=== PATIENT | female | born 1990 | race Two or more races ===

== ENCOUNTER 2018-07-26 10:36 | Emergency (ER) | payer OTHER ==
[2018-07-26 10:43] VITALS: BP 119/66; PULSE 120; TEMP 100.2; BMI 30.2
[2018-07-26] MEDS ORDERED: ACETAMINOPHEN 500 MG TABLET (FP) PO ONE (11:30)
--- NOTE | 2018-07-26 11:30 | PDOC ---
History of Present Illness - General Chief Complaint: Cold Symptoms Stated Complaint: FLU SYMPTOMS Time Seen by Provider: 07/26/18 11:06 History Source: Patient, Anode Worker Used (#[id number]) - History of Present Illness Initial Comments: 07/26/18 11:30 Patient 32 weeks present with complaint of 2 day history of cough, runny nose, fever, sore throat and headache. Patient denies vomiting, diarrhea or any other symptoms. Patient denies vaginal bleeding or abdominal pain.Patient took Tylenol 500 mg 2 hours ago for fever. 07/26/18 11:34 Past History - Past Medical History Allergies/Adverse Reactions: Allergies Allergy/AdvReac Type Severity Reaction Status Date / Time No Known Allergies Allergy Verified 07/26/18 10:43 Home Medications: Ambulatory Orders Docusate Sodium 100 mg PO BID 15 Days #30 capsule 03/22/18 Hydrocortisone 2.5% Topical Cr [Anusol 2.5% Hc Cream -] 1 applic RC DAILY #1 tube 03/22/18 105/Iron/Folic AC/Dha [Prena1 True Combo Pack] 1 each PO DAILY Albuterol Sulfate Inhaler - [Ventolin Hfa Inhaler -] 2 inh PO Q6H PRN #1 inh Benzonatate [Tessalon Pearls -] 100 mg PO TID PRN #12 capsule 07/26/18 Oseltamivir Phosphate [Tamiflu] 75 mg PO BID 5 Days #10 capsule 07/26/18 COPD: No CHF: No DVT: No Dementia: No - Immunization History Immunization Up to Date: Yes - Suicide/Smoking/Psychosocial Hx Smoking History: Never smoked Have you smoked in the past 12 months: No Information on smoking cessation initiated: No Hx Alcohol Use: No Drug/Substance Use Hx: No Substance Use Type: None Review of Systems - Review of Systems Able to Perform ROS?: Yes Is the patient limited Tajik proficient: No Constitutional: Yes: Fever, Malaise. No: Weakness HEENTM: Yes: Symptoms Reported, See HPI, Nose Congestion, Throat Pain. No: Eye Pain, Blurred Vision, Tearing, Recent change in vision, Double Vision, Cataracts , Ear Pain, Ocular Prothesis, Ear Discharge, Nose Pain, Tinnitus, Nose Bleeding , Hearing Loss, Throat Swelling, Mouth Pain, Dental Problems, Difficulty Swallowing, Mouth Swelling, Other Respiratory: Yes: Symptoms reported, See HPI, Cough. No: Orthopnea, Shortness of Breath, SOB with Exertion, SOB at Rest, Stridor, Wheezing, Productive cough, Hemoptysis, Other Cardiac (ROS): No: Symptoms Reported, See HPI, Chest Pain, Edema, Irregular Heart Rate, Lightheadedness, Palpitations, Syncope, Chest Tightness, Other ABD/GI: No: Constipated, Diarrhea, Nausea, Vomiting, Abdominal cramping All Other Systems: Reviewed and Negative *Physical Exam - Vital Signs Last Vital Signs Temp Pulse Resp BP Pulse Ox 100.2 F H 120 H 16 119/66 100 07/26/18 10:40 07/26/18 10:40 07/26/18 10:40 07/26/18 10:40 07/26/18 10:40 - Physical Exam Comments: 07/26/18 11:32 GENERAL: Well developed, well nourished. Awake and alert. No acute distress. HEENT: Normocephalic, atraumatic. PERRLA, EOMI. No conjunctival pallor. Sclera are non-icteric. Moist mucous membranes. Oropharynx is clear. NECK: Supple. Full ROM. CARDIOVASCULAR: Regular rate and rhythm. No murmurs, rubs, or gallops. Distal pulses are 2+ and symmetric. PULMONARY: No evidence of respiratory distress. Lungs clear to auscultation bilaterally. No wheezing, rales or rhonchi. ABDOMINAL: 32 weeks gravid abdomen.Soft. Non-tender. No rebound or guarding. No organomegaly. Normoactive bowel sounds. MUSCULOSKELETAL Normal range of motion at all joints. SKIN: Warm and dry. Normal capillary refill. No rashes. No jaundice. NEUROLOGICAL: Alert, awake, appropriate. Gait is normal without ataxia. PSYCHIATRIC: Cooperative. Good eye contact. Appropriate mood General Appearance: Yes: Nourished, Appropriately Dressed. No: Apparent Distress Moderate Sedation - Procedure Monitoring Vital Signs: Procedure Monitoring Vital Signs Temperature 100.2 F H 07/26/18 10:40 Pulse Rate 120 H 07/26/18 10:40 Respiratory Rate 16 07/26/18 10:40 Blood Pressure 119/66 07/26/18 10:40 O2 Sat by Pulse Oximetry (%) 100 07/26/18 10:40 Medical Decision Making - Medical Decision Making 07/26/18 11:33 Patient 32 weeks present with complaint of 2 day history of runny nose, cough, fever, sore throat and headache. Patient took Tylenol 500 mg 2 hours ago for fever. Clinical exam unremarkable except fever of 100.2 Fahrenheit. Rapid strep and rapid flu tests ordered. Tylenol 500 mg by mouth given for fever. Treat based on lab results. 07/26/18 12:00 Rapid strep and flu negative. Patient symptoms likely viral syndrome with URI. Patient is to be treated with Tamiflu given low sensitivity of rapid flu tests. Patient is stable for discharge with outpatient treatment and PCP follow-up. *DC/Admit/Observation/Transfer Diagnosis at time of Disposition: Viral syndrome, Cough URI (upper respiratory infection) Qualifiers: URI type: unspecified viral URI Qualified Code(s): J06.9 - Acute upper respiratory infection, unspecified - Discharge Dispostion Disposition: HOME Condition at time of disposition: Stable Decision to Admit order: No - Prescriptions Prescriptions: Albuterol Sulfate Inhaler - [Ventolin Hfa Inhaler -] 2 inh PO Q6H PRN #1 inh PRN Reason: Cough Benzonatate [Tessalon Pearls -] 100 mg PO TID PRN #12 capsule PRN Reason: Cough Oseltamivir Phosphate [Tamiflu] 75 mg PO BID 5 Days #10 capsule - Referrals - Patient Instructions Printed Discharge Instructions: DI for Viral Upper Respiratory Infection -- Adult Additional Instructions: Take medication as prescribed. Increase fluid intake. Follow-up with PCP. Print Language: BAHAMIAN - Post Discharge Activity
[2018-07-26] MEDS ORDERED: ACETAMINOPHEN 500 MG TABLET (FP) ONE (11:35)
== END 2018-07-26 12:08 | disposition home or self-care (01) ==
LOC: JERFT 10:36
DX: J06.9 Acute upper respiratory infection, unspecified (principal); B97.89 Other viral agents as the cause of diseases classified elsewhere
CPT/HCPCS: 87070; 87804; 87880; 99281-25

== ENCOUNTER 2018-09-07 22:15 | Emergency (ER) | payer OTHER ==
[2018-09-07 22:17] VITALS: BP 121/67; PULSE 82; TEMP 97.6; BMI 30.9
--- NOTE | 2018-09-07 22:52 | PDOC ---
History of Present Illness - General Chief Complaint: Nausea/Vomiting Stated Complaint: [id number] Time Seen by Provider: 09/07/18 22:29 History Source: Patient Exam Limitations: No Limitations Past History - Past Medical History Allergies/Adverse Reactions: Allergies Allergy/AdvReac Type Severity Reaction Status Date / Time No Known Allergies Allergy Verified 07/30/18 22:17 Home Medications: Ambulatory Orders 105/Iron/Folic AC/Dha [Prena1 True Combo Pack] 1 each PO DAILY COPD: No CHF: No DVT: No Dementia: No - Immunization History Immunization Up to Date: Yes - Suicide/Smoking/Psychosocial Hx Smoking History: Never smoked Have you smoked in the past 12 months: No Information on smoking cessation initiated: No Hx Alcohol Use: No Drug/Substance Use Hx: No Substance Use Type: None *Physical Exam - Vital Signs Last Vital Signs Temp Pulse Resp BP Pulse Ox 97.6 F 82 20 121/67 98 09/07/18 22:16 09/07/18 22:16 09/07/18 22:16 09/07/18 22:16 09/07/18 22:16 - Physical Exam General Appearance: No: Apparent Distress Respiratory/Chest: positive: Lungs Clear, Normal Breath Sounds. negative: Respiratory Distress Cardiovascular: positive: Regular Rhythm, Regular Rate, S1, S2. negative: Murmur Gastrointestinal/Abdominal: positive: Other (gravid uterus) Integumentary: positive: Normal Color Neurologic: positive: Alert, Normal Mood/Affect Moderate Sedation - Procedure Monitoring Vital Signs: Procedure Monitoring Vital Signs Temperature 97.6 F 09/07/18 22:16 Pulse Rate 82 09/07/18 22:16 Respiratory Rate 20 09/07/18 22:16 Blood Pressure 121/67 09/07/18 22:16 O2 Sat by Pulse Oximetry (%) 98 09/07/18 22:16 Medical Decision Making - Medical Decision Making 28 y/o F currently 38 weeks , was sent from L&D as patient having NBNB emesis and watery diarrhea x 2 days. Patient's has similar sxs; sxs started after eating cheese from [place]. Patient has had no vomiting today and was able to eat food. On L&D floor, patient had heart rate monitoring done which was normal; patient got 1 L of LR while there. Denies fever, sob, cp, abd pain, vaginal bleeding Patient appears well Was able to tolerate PO here as well Likely viral gastroenteritis Stable for dc 09/07/18 22:52 *DC/Admit/Observation/Transfer Diagnosis at time of Disposition: Gastroenteritis - Discharge Dispostion Disposition: HOME Condition at time of disposition: Stable Decision to Admit order: No - Referrals Referrals: Shwetha Gomes [Primary Care Provider] - 2 Days - Patient Instructions Printed Discharge Instructions: DI for Viral Gastroenteritis -- Adult Additional Instructions: Thank you for choosing [facility]. It was a pleasure taking care of you. Stay hydrated - drink at least 2 L of water daily Eat light food - recommend bananas, rice, applesauce, plain toast, plain yogurt until feeling better Follow-up with PCP in 2-3 days Return to the Emergency Department if your symptoms worsen or persist or have other concerning symptoms. - Post Discharge Activity
== END 2018-09-07 23:57 | disposition home or self-care (01) ==
LOC: JER 22:15
DX: O26.893 Other specified pregnancy related conditions, third trimester (principal); O99.613 Diseases of the digestive system complicating pregnancy, third trimester; K92.89 Other specified diseases of the digestive system; K52.9 Noninfective gastroenteritis and colitis, unspecified; Z3A.38 38 weeks gestation of pregnancy
CPT/HCPCS: 99282-25

== ENCOUNTER 2018-09-18 08:00 | Inpatient (IN) | payer OTHER ==
[2018-09-20] MEDS ORDERED: ELECTROLYTE-148 SOLN 1,000 ML IV SCH (07:00)
[2018-09-20 07:48] VITALS: BMI 31.5
[2018-09-20] MEDS ORDERED: CITRIC ACID/SODIUM CITRATE 30 ML UNIT-DOSE CUP PO ONE (07:54)
[2018-09-20] MEDS ORDERED: ELECTROLYTE-148 SOLN 500 ML IV ONE (07:54)
--- NOTE | 2018-09-20 08:13 | HP ---
Past Medical History - Primary Care Physician PCP:: Anh Shahid - Admission Chief Complaint: 28 yrs , 39.4 weeks previous c/section type unknown requests for repeat c/section History of Present Illness: pnc at [address] [place] [address] 01/30/18 Panel: O Pos, , Hbsag neg, Rpr nr, Rubella iimune, Varicella iimune, , Lead neg, gc/ct neg, [id number] , Sickle neg , Hiv neg, CF screen neg 06/20/18 1 Hr Gtt 106, , Rpr nr, , Quantiferon neg, 08/20/18 GBS POS, Gc/Ct neg, HIV neg, sono done by [facility] for growth reviewed NT screen & AFP screen neg 08/30/18 last sono sliup, vx, , kel 18.5, , bpp 8/, m efw 6'2", Post Placenta History Source: Patient, Medical Record Limitations to Obtaining History: No Limitations - Past Medical History 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 Weeks Gestation by Dates: 40 ...EDC by Dates: 09/20/18 ...EDC by Sono: 09/23/18 (39.4 weeks by sono) Infectious Disease: No: AIDS, HIV, STD's, Tuberculosis Psych: No: Addictions, Anxiety, Bipolar, Depression, Panic, Psychosis, Schizophrenia, Other Endocrine: No: Diabetes Mellitus, Hyperthyroidism, Hypothyroidism - Past Surgical History Past Surgical History: Yes: (c/section in 2008) Hx Myomectomy: No Hx Transabdominal Cerclage: No - Smoking History Smoking history: Never smoked Have you smoked in the past 12 months: No - Alcohol/Substance Use Hx Alcohol Use: No History of Substance Use: reports: None Home Medications - Allergies Allergies/Adverse Reactions: Allergies Allergy/AdvReac Type Severity Reaction Status Date / Time No Known Allergies Allergy Verified 07/30/18 22:17 - Home Medications Home Medications: Ambulatory Orders 105/Iron/Folic AC/Dha [Prena1 True Combo Pack] 1 each PO DAILY Physical Exam - Maternity Vital Signs: Vital Signs Temperature 99.1 F 09/20/18 07:36 Pulse Rate 98 H 09/20/18 07:36 Respiratory Rate 09/20/18 07:36 Blood Pressure 137/83 09/20/18 07:36 O2 Sat by Pulse Oximetry (%) Selected Entries 09/20/18 07:36 Weight 156 lb Constitutional: Yes: Well Nourished Eyes: Yes: WNL HENT: Yes: WNL, Normocephalic Neck: Yes: WNL Cardiovascular: Yes: WNL, Regular Rate and Rhythm Lungs: Clear to auscultation Breast(s): Yes: WNL - Abdominal Exam/OB Fundal Height: 39 Number of Fetuses: Single Presentation: Breech Contractions: No Monitor Mode: External Heart Rate (range): 140 Heart Rate Location: Midline Category: I Accelerations: Uniform Decelerations: None - Vaginal Exam/OB Vaginal Bleediing: No Speculum Exam: No Dilatation (cm): close Effacement (%): unefface Presentation: Vertex/Position Station: -3 - Physical Exam Musculoskeletal: Yes: WNL Extremities: Yes: WNL. No: Calf Tenderness Edema: LLE: 1+, RLE: 1+ Integumentary: Yes: WNL, Incision (pfannensteil scar) Deep Tendon Reflex Grade: Normal +2 ...Motor Strength: WNL Psychiatric: Yes: WNL, Alert, Oriented - Labs Lab Results: Laboratory Tests 09/19/18 09/19/18 09/19/18 08:38 08:38 08:38 WBC Hgb Hct Plt Count PT with INR 10.80 INR 0.92 Sodium 137 Potassium 4.7 Chloride 103 Carbon Dioxide 26 BUN 10 Creatinine 0.6 Random Glucose 113 H Calcium 9.6 Total Bilirubin 0.6 AST 26 ALT 27 Urine Protein 1+ H Ur Leukocyte Esterase Trace Urine WBC (Auto) 7 Urine RBC (Auto) None Ur Epithelial Cells Many RPR Titer 09/19/18 09/19/18 08:38 08:38 WBC 7.6 Hgb 12.4 Hct 36.8 Plt Count 168 D PT with INR INR Sodium Potassium Chloride Carbon Dioxide BUN Creatinine Random Glucose Calcium Total Bilirubin AST ALT Urine Protein Ur Leukocyte Esterase Urine WBC (Auto) Urine RBC (Auto) Ur Epithelial Cells RPR Titer Nonreactive Hemorrhage Risk Assessment - Risk Factors Medium Risk Factors: Yes: Prior , uterine surgery,or multiple laparotomies Risk Score: 1 Risk Level: Medium Risk Problem List - Problems (1) with 39 completed weeks gestation Code(s): Z3A.39 - 39 WEEKS GESTATION OF (2) Previous section Code(s): Z98.891 - HISTORY OF UTERINE SCAR FROM PREVIOUS SURGERY (3) Raulito breech presentation Code(s): O32.1XX0 - MATERNAL CARE FOR BREECH PRESENTATION, UNSP Qualifiers: Fetus number: single or unspecified fetus Qualified Code(s): O32.1XX0 - Maternal care for breech presentation, not applicable or unspecified Assessment/Plan 28 yrs , Previous c/section type unknown, breech presentation for repeat c/section Plan Repeat LFTC/section
[2018-09-20] MEDS ORDERED: morphine SULFATE/Preservative Free 0.5 MG/ML (1cc Syringe) ONE (08:41)
[2018-09-20] MEDS ORDERED: ePHEDrine SULFATE 50 MG/1 ML AMPULE ONE (08:53)
[2018-09-20 09:46] LABS: ARTERIAL BLD GAS O2 SATURATION 8.3 % (90-98.9); ARTERIAL BLOOD GAS BASE EXCESS -6.2 meq/l (-2-2); ARTERIAL BLOOD GAS PO2 10.8 mmHg (80-100); ARTERIAL BLOOD GAS pH 7.14 (7.35-7.45)
[2018-09-20 09:47] LABS: VENOUS PC02 59.2 mmHg (38-52); VENOUS PH 7.22 (7.32-7.42); VENOUS PO2 25.4 mmHg (28-48)
[2018-09-20] MEDS ORDERED: OXYTOCIN 20 UNITS in 0.9% NS 20 UNIT/1,000 ML INFUS.BAG IV ONE (10:11)
[2018-09-20] MEDS: OXYTOCIN 20 UNITS in 0.9% NS 20 UNIT/1,000 ML INFUS.BAG IV SCH ×2 (10:20→18:26)
[2018-09-20] MEDS ORDERED: METHYLERGONOVINE MALEATE 0.2 MG/1 ML AMP IM PRN (10:23)
--- NOTE | 2018-09-20 10:36 | PN ---
Delivery - Delivery Section: Repeat, Low Flap Transverse (Indication : previous c/section 39.4 weeks) Type of Anesthesia: Spinal Episiotomy/Laceration: None EBL (cc): 700 (echevarria output 100 ml ) Delivery, Single - Stages of Labor Date of Delivery: 09/20/18 Time of Delivery: 09:02 Time Placenta Delivered: 09:03 Placenta: Yes: Manual Removal, Uterine Exploration - Condition of Insole And Outsole Preparer/Grain Buyer Present: Yes Name: TrCorrinachey Gender: Female (RST , Raulito Breech) Weight: 6 lb 13 oz Total Hours ROM (Hrs/Mins): 2 - 1 Minute Total Score: 9 5 Minutes Total Score: 9 - Feeding Plan Initial Plan: Elected not to breastfeed exclusively throughout hospitalization Remarks - Remarks Remarks: 28 yrs , 39.4 weeks iup, previous c/section type unknown pnc at , [facility] GBS pos Intraop course uneventful
--- NOTE | 2018-09-20 10:44 | OP ---
Operative Note - Note: Operative Date: 09/20/18 Pre-Operative Diagnosis: 39.4 weeks , previous c/section, Breech Operation: Repeat LFTC/section Findings: 9.02 AM baby girl, 9/9 , WT 6'13" , Rauliot Breech, RST, cord around neckx1 Both tubes & ovaries normal Ephraim Loaiza present in the room Surgeon: Anh Shahid Cartridge Loader: Ponce Aguero Anesthesiologist/TEMPLE MEAT CUTTER: Yariel Hall Anesthesia: Spinal Specimens Removed: cord segment for cord blood gas sample. cord blood. placenta Estimated Blood Loss (mls): 700 Drains, Volume Out (mls): 100 (echevarria output gayle color ) Fluid Volume Replaced (mls): 1,000 (Iv ancef 2 gm prior to incision given ) Operative Report Dictated: Yes
[2018-09-20] MEDS: IBUPROFEN 800 MG/8 ML IJ IVPB PRN ×2 (13:49→23:22)
--- NOTE | 2018-09-20 13:51 | OP ---
DATE OF OPERATION: 09/20/2018 PREOPERATIVE DIAGNOSIS: A 39.4 weeks, previous section, breech. OPERATION: Repeat low flap transverse section. SURGEON: Anh Shahid MD CNC SPECIALIST: SARA Rios ANESTHESIOLOGIST: Nathaniel Hall MD ANESTHESIA: Spinal. DATA COMMUNICATIONS ENGINEER: Ephraim Armando MD FINDINGS: This is a 28-year-old 2, para 1-0-0-1, previous section in [place] and the type was unknown. She was diagnosed with breech presentation on physical examination and patient not in labor. PROCEDURE: Abdomen was shaved, prepped. Aj catheter was placed. SCD TEDs were applied. She was taken to the operating room table. Spinal anesthesia was given. She was placed in supine position. Abdomen was painted and draped in usual manner. Pfannenstiel incision was made through previous incision scar. Skin and subcutaneous tissue and anterior rectus sheath was incised transversely. Bleeding points were clamped and cauterized. The rectus muscle was from the rectus sheath. Parietal peritoneum was opened vertically. The lower flap by the peritoneum was incised transversely. Lower uterine segment was incised transversely. Amniotic fluid was clear. The breech presentation was in RST position. First the breech and then the legs followed by the arms and finally the head was delivered with the cord around the neck. Immediate oral and nasal suction was done. Baby girl. Time of was 9:02 a.m. Baby was handed over to the medical data entry clerk. Baby's Apgars were 9/9 and weight is 6 pounds 15 ounce. Cord was clamped, and cord segment was sent for the cord blood gas. Cord blood was collected. Placenta was removed completely with the membranes. Uterine cavity was cleaned. The uterine incision was closed in 2 layers. First layer was a continuous locking with Biosyn 0 suture. Second layer was in continuous intermittently locking with Biosyn 0 suture, and vertical mattress sutures were taken for the second layer. Interrupted sutures were taken in the bladder peritoneum. Both tubes and ovaries were normal. Hemostasis was verified, and irrigation was done. Sponge, instrument, and needle count was correct. Then the closure of the abdomen was done. Parietal peritoneum was closed with Vicryl 0 suture, and then muscles were approximated together with Vicryl sutures, interrupted sutures were taken. Anterior rectus sheath then was closed with a 0 Vicryl, continuous sutures were taken. Before closure of anterior rectus sheath, the hemostasis was verified at the anterior rectus sheath flaps. Then, irrigation was done in subcutaneous tissue. Skin was mobilized from underneath the scar. Subcutaneous tissue was approximated with 2-0 Vicryl sutures, and then the skin was approximated with 3-0 Vicryl intradermal sutures. Steri-Strips were applied. Pressure dressing was given. Blood clots were removed from the vagina. Patient tolerated the procedure well. She was transferred to the recovery room in stable condition. Estimated blood loss was 700 mL. Intraoperative urine output was 100 mL. She received 2 g of IV Ancef prior to the incision. Felix [id number]
[2018-09-20] MEDS: CEFAZOLIN 1 GM/D5W 1 GM/50 ML BAG IVPB SCH (18:26)
[2018-09-21] MEDS: CEFAZOLIN 1 GM/D5W 1 GM/50 ML BAG IVPB SCH ×2 (01:52→10:08)
--- NOTE | 2018-09-21 07:33 | PN ---
Post Progress Note Post Day: 1 Type of Delivery: Repeat C/S Vital Signs: Vital Signs Temperature 97.9 F 09/21/18 06:00 Pulse Rate 97 H 09/21/18 06:00 Respiratory Rate 18 09/21/18 06:00 Blood Pressure 122/84 09/21/18 06:00 O2 Sat by Pulse Oximetry (%) 100 09/20/18 12:10 Uterus: Yes: Fundus @ umbilicus Incision: Yes: Dressing dry and intact Abdomen/GI: Yes: Abdomen soft Lochia: Yes: Rubra Lochia, amount: Small Extremities: Yes: Calves non-tender Perineum: Yes: Intact Assessment/Plan 28yo s/p RLTCS, POD#2 Routine PP care OOB, ambulate D/C Aj F/U AM CBC Anticipate d/c to home by POD#4 Sofia Gomes MD
[2018-09-21] MEDS ORDERED: oxyCODONE HCL 5 MG TABLET PO PRN ×2 (08:00)
[2018-09-21 08:19] LABS: BASO % 0.2 % (0-2.0); EOS % 0.2 % (0-4.5); HEMATOCRIT 34.6 % (32.4-45.2); HEMOGLOBIN 11.8 GM/dL (10.7-15.3); LYMPH % 13.9 % (8-40); MCH 29.2 pg (25.7-33.7); MCHC 34.1 g/dl (32.0-36.0); MEAN CELL VOLUME 85.8 fl (80-96); MEAN PLT VOLUME 11.7 fl (7.5-11.1); MONO % 6.3 % (3.8-10.2); NEUT % 79.4 % (42.8-82.8); PLATELET COUNT 141 K/MM3 (134-434); RBC 4.03 M/mm3 (3.60-5.2); RDW 15.5 % (11.6-15.6); WHITE BLOOD COUNT 11.9 K/mm3 (4.0-10.0)
[2018-09-21] MEDS: IBUPROFEN 600 MG TABLET (FP) PO PRN ×3 (08:22→22:38)
[2018-09-21] MEDS: ACETAMINOPHEN 325 MG TABLET (FP) PO PRN ×2 (08:23→22:38)
[2018-09-21] MEDS: SIMETHICONE 80 MG TAB.CHEW (FP) PO PRN ×3 (08:23→22:39)
[2018-09-21] MEDS: ENOXAPARIN NA (PORCINE) 40 MG/0.4 ML DISP.SYRIN SQ SCH (10:08)
[2018-09-21] MEDS: PRENATAL VITAMINS W/ FOLIC ACID TABLET (FP) PO SCH (10:08)
[2018-09-21] MEDS ORDERED: BISACODYL 10 MG SUPP.RECT RC PRN (10:23)
--- NOTE | 2018-09-21 11:18 | PN ---
Progress Note (short form) - Note Progress Note: Anesthesia postop note 28 y/o F s/p spinal anesthesia for section. POD#1, vss, aaox3, sensory motor intact distally. NO anesthesia complications.
[2018-09-21] MEDS: OXYTOCIN 20 UNITS in 0.9% NS 20 UNIT/1,000 ML INFUS.BAG IV SCH (18:41)
[2018-09-21] MEDS: FERROUS SO4 325 MG TABLET (FP) PO SCH (22:38)
[2018-09-21] MEDS: SENNOSIDES/DOCUSATE COMBO (SENNA PLUS) TABLET (UD) PO PRN (22:39)
--- NOTE | 2018-09-22 07:25 | PN ---
Progress Note (short form) - Note Progress Note: pod 2 doing well, pasing gas , ambulatin CBC, BMP 09/21/18 07:30 Last Vital Signs Temp Pulse Resp BP Pulse Ox 98.2 F 99 H 18 118/59 L 100 09/21/18 22:00 09/21/18 22:00 09/21/18 22:00 09/21/18 22:00 09/20/18 12:10 abdomen soft, no distension, no cva uterus firm lochia mild no calf tenderness plan ambulate , cbc in am
[2018-09-22] MEDS: ENOXAPARIN NA (PORCINE) 40 MG/0.4 ML DISP.SYRIN SQ SCH (09:12)
[2018-09-22] MEDS: FERROUS SO4 325 MG TABLET (FP) PO SCH ×2 (09:12→21:37)
[2018-09-22] MEDS: PRENATAL VITAMINS W/ FOLIC ACID TABLET (FP) PO SCH (09:12)
[2018-09-22] MEDS: IBUPROFEN 600 MG TABLET (FP) PO PRN ×2 (12:42→21:38)
[2018-09-22] MEDS: ACETAMINOPHEN 325 MG TABLET (FP) PO PRN ×2 (12:43→21:37)
[2018-09-22] MEDS: SIMETHICONE 80 MG TAB.CHEW (FP) PO PRN ×2 (12:44→21:37)
[2018-09-22] MEDS: SENNOSIDES/DOCUSATE COMBO (SENNA PLUS) TABLET (UD) PO PRN (21:38)
[2018-09-23 08:19] VITALS: BP 103/54; PULSE 89; TEMP 98.3
--- NOTE | 2018-09-23 08:35 | DS ---
Physical Exam-EDUCATION DEPARTMENT REGISTRAR Vital Signs: Vital Signs Temperature 98.3 F 09/23/18 08:17 Pulse Rate 89 09/23/18 08:17 Respiratory Rate 20 09/23/18 08:17 Blood Pressure 103/54 L 09/23/18 08:17 O2 Sat by Pulse Oximetry (%) 100 09/20/18 12:10 Constitutional: Yes: Well Nourished, Other (pain scale 3/10) Eyes: Yes: WNL HENT: Yes: WNL, Normocephalic Neck: Yes: WNL Cardiovascular: Yes: WNL, Regular Rate and Rhythm Respiratory: Yes: WNL, Regular Gastrointestinal: Yes: WNL, Normal Bowel Sounds, Soft, Other (bm done). No: Distention ...Rectal Exam: Yes: WNL Renal/: Yes: WNL. No: CVA Tenderness - Left, CVA Tenderness - Right ....Post : Yes: Uterus firm, Uterus non-tender, Moderate lochia rubra Breast(s): Yes: WNL (BF , breast not engorged) Musculoskeletal: Yes: WNL Extremities: Yes: WNL. No: Calf Tenderness Edema: LLE: 1+, RLE: 1+ Integumentary: Yes: WNL Wound/Incision: Yes: Clean/Dry, Well Approximated, Sutures Intact, Steri Strips , Open to air. No: Draining, Reddened, Bleeding, Excoriated Neurological: Yes: WNL, Alert, Oriented ...Motor Strength: WNL Psychiatric: Yes: WNL, Alert, Oriented Labs: CBC, BMP 09/21/18 07:30 Delivery - Delivery Section: Repeat, Low Flap Transverse (Indication : previous c/section 39.4 weeks) Type of Anesthesia: Spinal Episiotomy/Laceration: None EBL (cc): 700 (echevarria output 100 ml ) Delivery, Single - Stages of Labor Date of Delivery: 09/20/18 Time of Delivery: 09:02 Time Placenta Delivered: 09:03 Placenta: Yes: Manual Removal, Uterine Exploration - Condition of Infant Band Manager/Electronic Assembler Group Leader Present: Yes Name: Ephraim Armando Infant Gender: Female (RST , Raulito Breech) Weight: 6 lb 13 oz Total Hours ROM (Hrs/Mins): 2 - 1 Minute Total Score: 9 5 Minutes Total Score: 9 - [place] Feeding Plan Initial Plan: Elected not to breastfeed exclusively throughout hospitalization Remarks - Remarks Remarks: 28 yrs , 39.4 weeks iup, previous c/section type unknown pnc at 2, [facility] GBS pos Intraop course uneventful . post op course uneventful discharge 09/23/18 Discharge Summary Reason For Visit: CSECTION Current Active Problems Raulito breech presentation (Acute) with 39 completed weeks gestation (Acute) Previous section (Acute) Previous , delivered, current hospitalization (Acute) Condition: Stable - Instructions Diet, Activity, Other Instructions: Post Instructions DIET: Continue good diet high in protein, calcium, and iron rich foods. Drink at least eight (8) glasses of water daily in addition to other fluids. ct Regular diet MEDICATIONS: Continue vitamins and iron as previously directed. Motrin and Tylenol may be taken for minor discomfort. ACTIVITY: Mild to moderate exercise may be started in two (2) weeks. Take frequent rest periods. Resume normal activity after six (6) week check up. WOUND CARE OF OPERATIVE SITE: Continue use of perineal bottle until vaginal discharge stops. Keep area clean. Shower daily. Keep abdominal wound dry. Report any drainage or redness to physician. Tub baths, tampons and douches are not permitted for [address] Breast feeding & or Bottle feeding BREAST CARE: (For those that are not breast feeding): If engorgement occurs: Wear tight fitting bra. Take Tylenol or Motrin for pain. Apply cold packs (ice in bags to each breast ) FAMILY PLANNING: There are many control alternatives to pursue and they should be discussed at your first office visit. You may resume sexual activity after your six (6) week check up. (Remember, breast feeding is not a contraceptive) NEXT PHYSICIAN APPOINTMENT: Be certain to call for a one (1) week appointment, unless otherwise directed. RTC 1 wek for wound check up Call Clinic or got to Emergency Dept if you have any of the following: Heavy vaginal bleeding Painful urination Leg pain Unusual odor noted to vaginal bleeding High fever Red streaking noted on breast Referrals: Anh Shahid MD [Staff Physician] - Disposition: HOME - Home Medications Comprehensive Discharge Medication List: Ambulatory Orders 105/Iron/Folic AC/Dha [Prena1 True Combo Pack] 1 each PO DAILY Acetaminophen [Tylenol .Regular Strength -] 500 mg PO Q4H PRN #30 tablet Ferrous Sulfate [Feosol] 325 mg PO BID ud 09/22/18 Ibuprofen [Motrin -] 600 mg PO Q4H PRN #30 tablet 09/22/18 Vitamins (Sjr) - 1 tab PO DAILY #30 tablet 09/22/18
[2018-09-23] MEDS: FERROUS SO4 325 MG TABLET (FP) PO SCH (09:12)
[2018-09-23] MEDS: ACETAMINOPHEN 325 MG TABLET (FP) PO PRN (09:12)
[2018-09-23] MEDS: PRENATAL VITAMINS W/ FOLIC ACID TABLET (FP) PO SCH (09:12)
[2018-09-23] MEDS: IBUPROFEN 600 MG TABLET (FP) PO PRN (09:12)
[2018-09-23] MEDS: ENOXAPARIN NA (PORCINE) 40 MG/0.4 ML DISP.SYRIN SQ SCH (09:12)
[2018-09-23 09:52] LABS: BASO % 0.2 % (0-2.0); EOS % 1.6 % (0-4.5); HEMATOCRIT 33.7 % (32.4-45.2); HEMOGLOBIN 11.5 GM/dL (10.7-15.3); LYMPH % 26.4 % (8-40); MCH 29.8 pg (25.7-33.7); MCHC 34.1 g/dl (32.0-36.0); MEAN CELL VOLUME 87.4 fl (80-96); MEAN PLT VOLUME 11.1 fl (7.5-11.1); MONO % 7.1 % (3.8-10.2); NEUT % 64.7 % (42.8-82.8); PLATELET COUNT 174 K/MM3 (134-434); RBC 3.86 M/mm3 (3.60-5.2); RDW 15.6 % (11.6-15.6); WHITE BLOOD COUNT 7.9 K/mm3 (4.0-10.0)
--- NOTE | 2018-09-29 15:26 | PATH ---
Surgical Pathology Report Patient Name: PEDRO BYRD Med. Rec. 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 Specimen(s) Received PLACENTA Clinical History at 40 weeks in 2008 Final Diagnosis PLACENTA, SECTION: 440 G THIRD TRIMESTER PLACENTA WITH TRIVASCULAR UMBILICAL CORD AND UNREMARKABLE PLACENTAL MEMBRANES. Electronically Signed Kathy Bolton M.D. Gross Description The specimen is received fresh labeled placenta and is a 440 gram, 16.5 x 14.0 x 2.8 cm. placenta with attached membranes and umbilical cord. The attached membranes are cortez, translucent with focal opacities and insert marginally. The umbilical cord measures 16.5 cm. in length and averages 1.1 cm. in diameter. The cord inserts eccentrically, 3.5 cm. to the nearest margin. No true knots or strictures are identified. Cut surface of the umbilical cord reveals 3 vessels. The surface is norton-blue with minimal fibrin deposition and appropriate caliber vessels. The maternal surface is red-brown with focal defects. Sectioning reveals red-brown, spongy parenchyma. No lesions are identified. Shift Supervisor Film Processing sections are submitted in three cassettes as follows: 1- membrane rolls and umbilical cord; 2-3- full thickness sections of placenta. 09/28/2018 [facility]/28/2018
== END 2018-09-23 12:15 | disposition home or self-care (01) | DRG 540 ==
LOC: JLDR 09-20 06:30 → J3W 09-20 12:39
PROVIDERS: ADMIT Obstetrics & Gynecology; ATTEND Obstetrics & Gynecology
PROC: 10D00Z1 Extraction of Products of Conception, Low, Open Approach (ICD-10-PCS; principal; 2018-09-20)
DX: O34.211 Maternal care for low transverse scar from previous cesarean delivery (principal); O99.824 Streptococcus B carrier state complicating childbirth; O32.1XX0 Maternal care for breech presentation, not applicable or unspecified; O69.81X0 Labor and delivery complicated by cord around neck, without compression, not applicable or unspecified; Z3A.39 39 weeks gestation of pregnancy; Z37.0 Single live birth
CPT/HCPCS: 36415; 36600; 80053; 81003; 81015; 82803; 85025; 85610; 86593; 86850; 86900; 86901; 88307-TC

== ENCOUNTER 2020-04-10 13:02 | Emergency (ER) | payer OTHER ==
[2020-04-10 13:10] VITALS: BP 117/74; PULSE 102; TEMP 97.8; BMI 26.2
--- NOTE | 2020-04-10 14:29 | PDOC ---
History of Present Illness - General Chief Complaint: ,Possible Stated Complaint: ,Possible Time Seen by Provider: 04/10/20 13:18 History Source: Patient Exam Limitations: Clinical Condition - History of Present Illness Initial Comments: 04/10/20 14:24 Patient G3, P2 at 19 weeks with confirmed present with complaint of decrease movement for 3 days. Patient report has not been feeling the baby move for the past 3 days. Denies abdominal pain, vaginal bleeding, fever, chills. Denies any other symptoms. Reported last OB appointment 5 days ago with normal . Denies any trauma or injury to abdomen. Denies cough, shortness of breath, palpitations Is this a multiple visit Asthma Patient?: No Timing/Duration: other (3 days) Past History - Medical History Allergies/Adverse Reactions: Allergies Allergy/AdvReac Type Severity Reaction Status Date / Time No Known Allergies Allergy Verified 07/30/18 22:17 Home Medications: Ambulatory Orders 105/Iron/Folic AC/Dha [Prena1 True Combo Pack] 1 each PO DAILY 03/22/18 Acetaminophen [Tylenol .Regular Strength -] 500 mg PO Q4H PRN #30 tablet 09/22/18 Ferrous Sulfate [Feosol] 325 mg PO BID ud 09/22/18 Ibuprofen [Motrin -] 600 mg PO Q4H PRN #30 tablet 09/22/18 Vitamins (Sjr) - 1 tab PO DAILY #30 tablet 09/22/18 Asthma: No Cancer: No Cardiac Disorders: No COPD: No CHF: No DVT: No Dementia: No Diabetes: No HTN: No Seizures: No Thyroid Disease: No - Reproductive History Is Patient Now?: Yes - Immunization History Immunization Up to Date: Yes - Psycho-Social/Smoking History Smoking History: Never smoked Have you smoked in the past 12 months: No Information on smoking cessation initiated: No - Substance Abuse Hx (Audit-C & DAST Scrn) How often the patient has a drink containing alcohol: Never Score: In Men: 4 or > Positive; In Women: 3 or > Positive: 0 Screen Result (Pos requires Nsg. Audit-10AR): Negative In the last yr the pt used illegal drug/Rx for NonMed reason: No Score: Yes response is considered Positive: 0 Screen Result (Positive result requires Nsg. DAST-10): Negative Review of Systems - Review of Systems Able to Perform ROS?: Yes Is the patient limited Luxembourgish proficient: No Constitutional: No: Chills, Fever, Malaise HEENTM: No: Symptoms Reported, See HPI, Eye Pain, Blurred Vision, Tearing, Recent change in vision, Double Vision, Cataracts, Ear Pain, Ocular Prothesis, Ear Discharge, Nose Pain, Nose Congestion, Tinnitus, Nose Bleeding, Hearing Loss, Throat Pain, Throat Swelling, Mouth Pain, Dental Problems, Difficulty Swallowing, Mouth Swelling, Other Respiratory: No: Symptoms reported, See HPI, Cough, Orthopnea, Shortness of Breath, SOB with Exertion, SOB at Rest, Stridor, Wheezing, Productive cough, Hemoptysis, Other Cardiac (ROS): No: Symptoms Reported, See HPI, Chest Pain, Edema, Irregular Heart Rate, Lightheadedness, Palpitations, Syncope, Chest Tightness, Other ABD/GI: No: Symptoms Reported, Nausea, Vomiting, Abdominal cramping : No: Symptoms Reported, See HPI, Other (vaginal bleeding) Integumentary: No: Symptoms Reported All Other Systems: Reviewed and Negative *Physical Exam - Vital Signs Last Vital Signs Temp Pulse Resp BP Pulse Ox 97.8 F 102 H 17 117/74 100 04/10/20 13:07 04/10/20 13:07 04/10/20 13:07 04/10/20 13:07 04/10/20 13:07 - Physical Exam 04/10/20 14:28 GENERAL: Well developed, well nourished. Awake and alert. No acute distress. HEENT: Normocephalic, atraumatic. PERRLA, EOMI. No conjunctival pallor. Sclera are non-icteric. Moist mucous membranes. Oropharynx is clear. NECK: Supple. Full ROM. CARDIOVASCULAR: Regular rate and rhythm. No murmurs, rubs, or gallops. PULMONARY: No evidence of respiratory distress. Lungs clear to auscultation bilaterally. No wheezing, rales or rhonchi. ABDOMINAL: Soft. 20 weeks gravid nontender abdomen. No rebound or guarding. No organomegaly. Normoactive bowel sounds. MUSCULOSKELETAL Normal range of motion at all joints. SKIN: Warm and dry. Normal capillary refill. No rashes. No jaundice. No cyanosis NEUROLOGICAL: Alert, awake, appropriate. Gait is normal without ataxia. PSYCHIATRIC: Cooperative. Good eye contact. Appropriate mood General Appearance: Yes: Nourished, Appropriately Dressed. No: Apparent Distress ED Treatment Course - RADIOLOGY Radiology Studies Ordered: Category Date Time Status LIMITED US [US] Stat Ultrasound 04/10/20 13:28 Ordered Medical Decision Making - Medical Decision Making 04/10/20 14:25 Patient G3, P2 at 19 weeks with confirmed present with complaint of decrease movement for 3 days. Patient report has not been feeling the baby move for the past 3 days. Denies abdominal pain, vaginal bleeding, fever, chills. Denies any other symptoms. Reported last OB appointment 5 days ago with normal . Denies any trauma or injury to abdomen. Denies cough, shortness of breath, palpitations Clinical exam unremarkable with 20 weeks gravid abdomen and no acute abdominal tenderness. Patient in no acute distress. No vaginal bleeding. Official pelvic ultrasound shows live IUP with BPD of 4.2 cm consistent with 19.0 weeks with heart rate of 136 bpm. Patient in no acute distress. Reassurance given to patient. Patient stable for discharge with follow-up with your OB with pelvic rest instructions and no strenuous activity. Patient stable for discharge Discharge - Discharge Information Problems reviewed: Yes Clinical Impression/Diagnosis: 19 weeks gestation of Decreased movement Qualifiers: Fetus number: single or unspecified fetus Trimester: second trimester Qualified Code(s): O36.8120 - Decreased movements, second trimester, not applicable or unspecified Condition: Stable Disposition: HOME - Admission No - Follow up/Referral Referrals: Shwetha Gomes [Primary Care Provider] - - Patient Discharge Instructions Additional Instructions: Ultrasound of your shows live baby with normal heart rate. Follow-up with your WELLNESS CONSULTANT as soon as possible. Come back to emergency room if vaginal bleeding or severe abdominal pain. La ecografa de carey embarazo muestra un beb vivo con frecuencia cardaca normal. Idalia un seguimiento con carey obstetra / gineclogo lo antes posible. Regrese a la sonali de emergencias si tiene sangrado vaginal o dolor abdominal intenso - Post Discharge Activity
== END 2020-04-10 15:15 | disposition home or self-care (01) ==
LOC: JER 13:02
DX: O36.8120 Decreased fetal movements, second trimester, not applicable or unspecified (principal); Z3A.14 14 weeks gestation of pregnancy
CPT/HCPCS: 76815-TC; 99284-25

== ENCOUNTER 2020-08-26 06:20 | Inpatient (IN) | payer OTHER ==
[2020-08-26] MEDS ORDERED: ELECTROLYTE-148 SOLN 1,000 ML IV SCH ×2 (06:30→07:30)
[2020-08-26] MEDS ORDERED: CITRIC ACID/SODIUM CITRATE 30 ML UNIT-DOSE CUP PO ONE (09:09)
[2020-08-26 09:44] VITALS: BMI 28.9
[2020-08-26] MEDS ORDERED: OXYTOCIN 20 UNITS in 0.9% NS 20 UNIT/1,000 ML INFUS.BAG IV ONE ×2 (10:03→11:50)
[2020-08-26] MEDS ORDERED: morphine SULFATE/PF 0.5 MG/ML (2cc Syringe - QUVA) ONE (10:09)
[2020-08-26] MEDS ORDERED: PROPOFOL 20 ML ONE (10:31)
[2020-08-26] MEDS ORDERED: IBUPROFEN 800 MG/8 ML IJ IVPB PRN (12:07)
[2020-08-26] MEDS ORDERED: BENZOCAINE 20% 57 GM BOTTLE TP PRN (12:07)
[2020-08-26] MEDS ORDERED: oxyCODONE HCL 5 MG TABLET PO PRN (12:07)
[2020-08-26] MEDS ORDERED: diphenhydrAMINE HCL 25 MG CAPSULE (FP) PO PRN (12:07)
[2020-08-26] MEDS ORDERED: METHYLERGONOVINE MALEATE 0.2 MG/1 ML AMP IM PRN (12:07)
[2020-08-26] MEDS ORDERED: OXYTOCIN 20 UNITS in 0.9% NS 20 UNIT/1,000 ML INFUS.BAG IV SCH (12:15)
[2020-08-26] MEDS: CEFAZOLIN 1 GM/D5W 1 GM/50 ML BAG IVPB SCH (17:17)
[2020-08-26] MEDS: ELECTROLYTE-148 SOLN 1,000 ML IV SCH (20:31)
[2020-08-26] MEDS: DEXTROSE 5%-LACTATED RINGERS 1,000 ML IV SCH (20:31)
[2020-08-27] MEDS: CEFAZOLIN 1 GM/D5W 1 GM/50 ML BAG IVPB SCH (01:38)
[2020-08-27 08:35] LABS: BASO % 0.2 % (0-2.0); EOS % 0.2 % (0-4.5); HEMATOCRIT 35.3 % (32.4-45.2); HEMOGLOBIN 11.7 GM/dL (10.7-15.3); MCH 28.6 pg (25.7-33.7); MEAN CELL VOLUME 86.4 fl (80-96); MEAN PLT VOLUME 10.6 fl (7.5-11.1); MONO % 6.2 % (3.8-10.2); NEUT % 77.4 % (42.8-82.8); PLATELET COUNT 188 K/MM3 (134-434); RBC 4.09 M/mm3 (3.60-5.2); RDW 14.5 % (11.6-15.6); WHITE BLOOD COUNT 12.1 K/mm3 (4.0-10.0)
[2020-08-27] MEDS: ENOXAPARIN NA (PORCINE) 40 MG/0.4 ML DISP.SYRIN SQ SCH (09:42)
[2020-08-27] MEDS: IBUPROFEN 600 MG TABLET (FP) PO PRN ×2 (09:49→19:16)
[2020-08-27] MEDS: SIMETHICONE 80 MG TAB.CHEW (FP) PO PRN ×2 (09:49→19:17)
[2020-08-27] MEDS ORDERED: BISACODYL 10 MG SUPP.RECT PR PRN (12:07)
[2020-08-27] MEDS: oxyCODONE HCL 5 MG TABLET PO PRN (19:15)
[2020-08-27] MEDS: BENZOCAINE 28 GM HEMORRHOIDAL OINTMENT TP PRN (19:17)
[2020-08-27] MEDS: ELECTROLYTE-148 SOLN 1,000 ML IV SCH (19:17)
[2020-08-27] MEDS: DEXTROSE 5%-LACTATED RINGERS 1,000 ML IV SCH (22:38)
[2020-08-28] MEDS: IBUPROFEN 600 MG TABLET (FP) PO PRN ×2 (05:27→09:20)
[2020-08-28] MEDS: oxyCODONE HCL 5 MG TABLET PO PRN (09:20)
[2020-08-28] MEDS: SIMETHICONE 80 MG TAB.CHEW (FP) PO PRN (09:21)
[2020-08-28] MEDS: ENOXAPARIN NA (PORCINE) 40 MG/0.4 ML DISP.SYRIN SQ SCH (09:21)
[2020-08-28] MEDS: WITCH HAZEL 50% (TUCKS) 40 PAD/JAR PAD TP PRN ×2 (09:21→10:27)
[2020-08-28] MEDS: BENZOCAINE 28 GM HEMORRHOIDAL OINTMENT TP PRN (10:27)
[2020-08-28 11:52] VITALS: BP 111/71; PULSE 97; TEMP 97.9
[2020-08-28] MEDS ORDERED: SENNOSIDES/DOCUSATE COMBO (SENNA PLUS) TABLET (UD) PO PRN (22:00)
== END 2020-08-28 13:50 | disposition home or self-care (01) | DRG 540 ==
LOC: JDEL 06:20 → JLDR 08:35 → J3W 12:56
PROVIDERS: ADMIT Obstetrics & Gynecology; ATTEND Obstetrics & Gynecology
PROC: 10D00Z1 Extraction of Products of Conception, Low, Open Approach (ICD-10-PCS; principal; 2020-08-26)
PROC: 0UB70ZZ Excision of Bilateral Fallopian Tubes, Open Approach (ICD-10-PCS; 2020-08-26)
DX: O34.211 Maternal care for low transverse scar from previous cesarean delivery (principal); N85.8 Other specified noninflammatory disorders of uterus; Z3A.38 38 weeks gestation of pregnancy; Z30.2 Encounter for sterilization; Z37.0 Single live birth
CPT/HCPCS: 36415; 59025; 85025; 88302-TC; 88307-TC

== ENCOUNTER 2021-11-15 00:58 | Emergency (ER) | payer OTHER ==
[2021-11-15 01:23] VITALS: BMI 21.7
[2021-11-15 01:25] VITALS: TEMP 98.3
[2021-11-15] MEDS ORDERED: ONDANSETRON 4 MG/2 ML VIAL IVPUSH ONE (02:05)
[2021-11-15] MEDS ORDERED: DEXTROSE 5%-NORMAL SALINE 1,000 ML IV ONE (02:06)
[2021-11-15 02:24] LABS: HEMATOCRIT 40.5 % (32.4-45.2); HEMOGLOBIN 13.6 GM/dL (10.7-15.3); MCH 27.9 pg (25.7-33.7); MCHC 33.6 g/dl (32.0-36.0); MEAN CELL VOLUME 83.1 fl (80-96); MEAN PLT VOLUME 9.6 fl (7.5-11.1); PLATELET COUNT 285 10^3/uL (134-434); RBC 4.88 M/mm3 (3.60-5.2); RDW 14.5 % (11.6-15.6); WHITE BLOOD COUNT 12.6 K/mm3 (4.0-10.0)
[2021-11-15] MEDS ORDERED: ONDANSETRON 4 MG/2 ML VIAL ONE (02:25)
[2021-11-15 02:44] LABS: CALCIUM 9.4 mg/dL (8.5-10.1)
[2021-11-15 02:45] LABS: ALBUMIN 4.9 g/dl (3.4-5.0); BLOOD UREA NITROGEN 17.7 mg/dL (7-18)
[2021-11-15 02:48] LABS: CREATININE 0.7 mg/dL (0.55-1.3)
[2021-11-15 02:50] LABS: BILIRUBIN,TOTAL 0.3 mg/dL (0.2-1); TOT PROT 9.2 g/dl (6.4-8.2)
[2021-11-15 03:31] LABS: ANISOCYTOSIS 0; MACROCYTOSIS 0
[2021-11-15] MEDS ORDERED: LACTATED RINGERS SOLUTION 1000 ML INFUS.BAG IV ONE (04:15)
[2021-11-15] MEDS ORDERED: ACETAMINOPHEN 325 MG TABLET (FP) PO ONE (04:36)
[2021-11-15] MEDS ORDERED: ACETAMINOPHEN 325 MG TABLET (FP) ONE (04:36)
[2021-11-15 05:14] VITALS: BP 111/76; PULSE 111
[2021-11-15] MEDS ORDERED: SODIUM CHLORIDE 0.9% 500 ML INFUS.BAG IV ONE (05:24)
[2021-11-16 14:13] LABS: SARS-CoV-2 NAA Not Detected (Not Detected)
== END 2021-11-15 06:22 | disposition home or self-care (01) ==
LOC: JER 00:58
PROC: 3E033GC Introduction of Other Therapeutic Substance into Peripheral Vein, Percutaneous Approach (ICD-10-PCS; principal; 2021-11-15)
DX: B34.9 Viral infection, unspecified (principal)
CPT/HCPCS: 36415; 80053; 83690; 85025; 87804; 99284-25; C9803-CS; U0003; U0005